=== PATIENT | female | born 1960 | race Caucasian/White ===

== ENCOUNTER 2018-11-12 05:08 | Observation (INO) ==
--- NOTE | 2018-11-07 10:29 | EKG Report ---
Test Performed on : 11/07/2018 09:58:53 AM Test Reason : pat Blood Pressure : / mmHG Vent. Rate : 065 BPM Atrial Rate : 065 BPM P-R Int : 152 ms QRS Dur : 084 ms QT Int : 396 ms P-R-T Axes : 035 016 059 degrees QTc Int : 411 ms Normal sinus rhythm. Normal ECG No previous ECGs available Confirmed by Brennen HUTTON, Lukas Trotter ([id number]) on 11/07/2018 11:40:08 AM
[2018-11-07 10:42] LABS: BASO# 0.04 X1000 (0.0-0.2); BASO% 0.9 % (0.0-0.8); EOS# 0.07 X1000 (0.0-0.7); EOS% 1.5 % (0.0-10.0); HEMATOCRIT 43.6 % (37.0-47.0); HEMOGLOBIN 14.8 g/dL (12.0-16.0); LYMPH# 1.35 X1000 (1.2-3.4); LYMPH% 28.8 % (20.5-51.1); MCH 31.7 PG (27-31); MCHC 33.9 g/dL (33-37); MCV 93.4 FL (81-99); MONO# 0.32 X1000 (0.11-0.59); MONO% 6.8 % (1.7-9.3); MPV 9.7 FL (7.4-10.4); NEUT# 2.91 X1000 (1.4-6.5); PLT 232 X1000 (130-400); RBC 4.67 XMIL (4.2-5.4); RDW 12.1 % (11.5-14.5); WBC 4.69 X1000 (4.8-10.8)
--- NOTE | 2018-11-08 11:20 | HISTORY AND PHYSICAL ---
HISTORY: The patient is a 58-year-old female with longstanding pelvic organ prolapse. We initially started seeing her approximately 1 year ago, and at that time she was found to have stage IV prolapse. The patient has worked for several physicians over many years, and is constantly checking her urine which is showing microscopic hematuria. Her prior evaluation has been negative. However, because of the prolapse, she is wishing to proceed with surgical intervention. We discussed pessary management, and we used a ring pessary for some period of time. However, she is now wishing to proceed with definitive surgical correction. The risks and benefits of sacrocolpopexy, supracervical hysterectomy, bilateral salpingectomy and mid urethral sling were explained at length. She understands and she is wishing to proceed. PAST MEDICAL HISTORY: Negative for diabetes, hypertension, or asthma. PAST SURGICAL HISTORY: Positive for cervical conization and tonsillectomy. She is noted to be a para 2-0-0-2. ALLERGIES: No known drug allergies. CURRENT MEDICATIONS: None. SOCIAL HISTORY: Negative for tobacco, ETOH, or drugs. FAMILY HISTORY: Noncontributory. PHYSICAL EXAMINATION: VITAL SIGNS: BMI is 26. HEENT: Normocephalic, atraumatic. PERRLA. EOMI. No thyromegaly. CV: Regular rate and rhythm without murmur, gallop, or rub. PULMONARY: Clear to auscultation and percussion. ABDOMEN: Soft. : Stage IV prolapse based on total vaginal length with most of this being apical in nature. Point D is at 0. NEUROLOGIC: Afocal. EXTREMITIES: Without clubbing, cyanosis, or edema. ASSESSMENT AND PLAN: Patient with advanced staged prolapse and is wishing to proceed towards surgical correction. The risks and benefits were discussed at length. She understands and wishing to proceed. She is admitted at this time for supracervical hysterectomy, abdominal sacrocolpopexy, bilateral salpingectomy and mid urethral sling with Obtryx. cc: Wali Mcmahon MD
[2018-11-12] MEDS ORDERED: KEFZOL 1 GM/D5W 1 GM/50 ML IVPB ONE (05:36)
[2018-11-12] MEDS ORDERED: REGLAN ONE (05:36)
[2018-11-12] MEDS ORDERED: TRANSDERM-SCOP ONE (05:36)
[2018-11-12] MEDS ORDERED: LR 1,000 ML ONE ×3 (05:36→10:10)
[2018-11-12] MEDS ORDERED: PEPCID ONE (05:36)
[2018-11-12] MEDS ORDERED: FENTANYL ONE ×2 (05:49→09:06)
[2018-11-12] MEDS ORDERED: VERSED ONE (05:49)
[2018-11-12] MEDS ORDERED: DIPRIVAN 1% ONE (05:49)
[2018-11-12] MEDS ORDERED: QUELICIN (DOSE) ONE (05:51)
[2018-11-12] MEDS ORDERED: ROBINUL ONE (05:51)
[2018-11-12] MEDS ORDERED: NORCURON ONE (05:51)
[2018-11-12] MEDS ORDERED: XYLOCAINE-MPF 2% ONE (05:51)
[2018-11-12] MEDS ORDERED: DECADRON ONE (05:51)
[2018-11-12] MEDS ORDERED: STERILE WATER INJ. ONE (05:51)
[2018-11-12] MEDS ORDERED: NEOSTIGMINE ONE (05:51)
[2018-11-12] MEDS ORDERED: ZOFRAN ONE (05:51)
[2018-11-12] MEDS ORDERED: MARCAINE 0.25% PF/EPI 1:200,000 ONE (06:32)
[2018-11-12] MEDS ORDERED: D10W 1,000 ML ONE (06:33)
--- NOTE | 2018-11-12 06:37 | H&P REVIEW ---
H&P Update H&P Review: H&P was reviewed and patient was examined, No change has occurred in the patient's condition
[2018-11-12] MEDS ORDERED: PITRESSIN ONE (08:14)
[2018-11-12] MEDS ORDERED: LASIX ONE (08:47)
[2018-11-12] MEDS ORDERED: TORADOL ONE ×2 (08:47→10:10)
[2018-11-12] MEDS ORDERED: BRIDION ONE (09:02)
[2018-11-12 09:46] LABS: URINE SOURCE CATH
[2018-11-12 09:49] LABS: BILIRUBIN URINE NEGATIVE (NEGATIVE); BLOOD URINE SMALL (NEGATIVE); COLOR STRAW; GLUCOSE URINE NEGATIVE (NEGATIVE); KETONE URINE NEGATIVE (NEGATIVE); LEUKOCYTES URINE NEGATIVE (NEGATIVE); NITRITE URINE NEGATIVE (NEGATIVE); PROTEIN URINE NEGATIVE (NEGATIVE); TURBIDITY URINE CLEAR (CLEAR); UR EPITHELIAL CELLS <10 /HPF (<10); URINE BACTERIA NEGATIVE /HPF; URINE RBC <10 /HPF (<10); URINE WBC <10 /HPF (<10); UROBILINOGEN URINE NORMAL (NORMAL)
--- NOTE | 2018-11-12 10:35 | OPERATIVE NOTE ---
PROCEDURE DATE: PREOPERATIVE DIAGNOSIS: Pelvic organ prolapse. POSTOPERATIVE DIAGNOSES: 1. Pelvic organ prolapse. 2. Right ovarian adhesive disease. PROCEDURE: 1. Da Stephan supracervical hysterectomy. 2. Abdominal sacrocolpopexy. 3. Midurethral sling with Obtryx. SURGEON: Wali Mcmahon MD ANESTHESIA: General. ESTIMATED BLOOD LOSS: 25 mL. HISTORY: The patient is a 58-year-old female whom we have been managing conservatively with pessary for advanced stage prolapse that began after the of her 2nd child. On initial evaluation, she was found to have stage 4 prolapse based on total vaginal length and Point C determination. She does not have any prolapse beyond that level; however, because the apical prolapse was greater than one-half of the vaginal length, she meets stage 4 criteria. Intraoperatively, she was found to have the right ovary densely adhered to the sidewall with the ureter at the most posterior portion of the ovary right in the area of dissection for placement of the graft from the sacrum. We had to avoid this area throughout. OPERATIVE PROCEDURE: Patient was taken to the operating room and placed in supine position. After adequate general anesthesia was obtained, she was placed in low adjustable stirrups and her abdomen and vagina were prepped and draped in the usual fashion. Pace catheter was placed and EEA sizers were placed within the vagina and the rectum. At this time, we went above and supraumbilically injected 0.25% Marcaine with epinephrine. We then made an incision for a 12 mm port. The port was placed and pelvic contents were visualized. Therefore, insufflation with CO2 to an intra-abdominal pressure of 14 was performed. The left-sided ports were placed under direct visualization after infiltration of the same local anesthetic and the right ports were placed similarly as well. The assistance port was in the right upper quadrant. Upon doing this, we then placed the patient in the deep Trendelenburg position and the robot was docked in the usual fashion without difficulty. Using the sizers to elevate the uterus, we initially grasped the uterus with single-tooth tenaculum, which was in Arm 3, the bipolar PK was in Arm 2, and hot scissors were in the right hand. We started at the left fallopian tube, elevating it away from the ovary. We clamped, cauterized, and cut the mesosalpinx and continued in clamp, cauterize, and cut fashion through the entire mesosalpinx, the utero-ovarian pedicle, and the round ligament. We then continued down the cardinal ligament partially to the level of the peritoneal fold. We turned our attention towards the right side; however, the ovary was densely adhered on the right- hand side. We were able to grasp the distal fallopian tube and elevated it away. We clamped, cauterized, and cut the mesosalpinx and continued in a similar fashion through the entire length of the mesosalpinx, the right utero-ovarian pedicle, the right round ligament, and then down the cardinal ligament. All pedicles were noted to be hemostatic. We then deviated the uterus posteriorly and we were able to develop the vesicovaginal space well below the cervical site. We turned our attention posteriorly to confirm the location of the uterosacral ligaments. We then continued down the cardinal ligaments and vessels on the right- and left-hand sides in clamp, cauterize, and cut fashion with the ureter now well out of the operative site. We did this to the level of the uterosacral ligament insertion. We then cut across the cervical stump, extirpating the corpus of the uterus from the cervical stump. The corpus was then placed in the appendiceal bed. We regrasped the cervical stump with a single-tooth tenaculum and then continued to elevate this out of the pelvis, and we continued with our vesicovaginal dissection. We went down to the level of the urethrovesical neck at the Pace bulb. We then turned our attention towards the posterior rectovaginal space and easily dissected this out and our blood loss at this point had been minimal. We then turned our attention towards the sacral promontory. We elevated the peritoneum in this area and then removed approximately 2 cm of presacral fat. We were then able to identify the anterior longitudinal ligament and our vessels were well out of the operative site. We then began creation of our tunnel; however, we quickly realized the right ovary was densely adhered and the ureter was pulled up just underneath the ovary at the inferior side. This made our dissection somewhat tenuous in this area to ensure that we did not incidentally kink this ureter on the right side when we closed the peritoneum. We tried to go lower than typical along the right-hand side with our dissection and continued down to our posterior dissection of the rectovaginal space. The mesh was introduced into the pelvis after having been trimmed. Based on the extent of her prolapse defects, the anterior mesh was placed in the vesicovaginal space and we secured it with 0 Armour-Jim suture. All sutures were thrown with an initial surgeon's throw and then 4 half-throws after this. We placed approximately 10 to 12 sutures anteriorly, starting distally and then becoming more proximal. We then placed 4 of 6 sutures through the cervical stump and then turned our attention towards the posterior arm. We used the third arm to elevate the bladder initially to develop the vesicovaginal space and to allow room for suturing. We then continued to use the third arm for deviation of the sigmoid away from our operative site. We placed approximately 8 sutures in the posterior compartment and our mesh was actually short on the posterior compartment approximately 2 to 3 cm. We had developed the space all the way down to the distal levators; however, our mesh did not reach this far, and decision was made not to attach a 2nd piece of mesh in this area. After securing the posterior arm, we then brought the third arm up to the promontory and placed 2 sutures through the mesh and through the anterior longitudinal ligament. We had no evidence of any bleeding at this site. We were able to confirm appropriate placement of the sutures through the ligament with gentle tension. Excessive mesh was trimmed at the third arm. We then re-peritonealized with the V-Loc suture. We were very careful around the ovary to ensure that we were not kinking this area due to the adhesive disease. Should any further surgery need to be done on the right ovary, this could be a somewhat difficult procedure to perform. After completion of this, copious amounts of irrigation were performed. Our blood loss had been minimal. We brought the uterus down into the pelvis and undocked the robot. With the robot undocked, we then removed the assistance port and placed the morcellator and morcellated the uterus with minimal tissue, spreading through throwing of material. We then performed copious amounts of irrigation again. We confirmed that all of the pieces had been removed. We then used a KavonThomasen to close the fascia and peritoneum of the assistance port as well as the supraumbilical robotic camera port. This was with a 0 Vicryl ligature. Abdomen was deflated of CO2 as the remaining ports were removed. Nursing services closed all 5 skin incisions with 4.0 Vicryl ligature in a subcuticular fashion as well as surgical glue. Vaginally, the Pace catheter was removed. We had excellent support in all compartments and decision was made not to proceed with a distal posterior defect repair. We started placement the sling by grasping the urethra proximally and distally with Allis clamps. We injected approximately 10 mL of the same local anesthetic in a periurethral fashion for dissection and pain management. A sagittal incision was made. Metzenbaum scissors were utilized to dissect up to the ischial pubic ramus bilaterally. Based on the bony landmarks of the ischial pubic ramus and the insertion of the adductor longus, a stab incision was initially made on the left-hand side. The halo device was introduced through the incision, through the obturator canal, and to the well drill operator cable tool's finger, which directed the needle out. The mesh was attached to it and then retracted back through the skin. This was performed on the contralateral side in a similar fashion. Cystoscope was placed and the bladder was filled to 200 mL of D10. There was no evidence of any abnormalities within the bladder except for some vascular changes consistent with interstitial cystitis. Both ureters were effluxing urine without any difficulty. There was no evidence of any mesh. Cystoscope was removed and a Katie clamp was placed in the mid urethral position. The tape was brought out the Katie clamp, blue tag was excised, and the sheaths were easily removed. There was no tension on the mesh whatsoever. The Katie clamp was removed and the midurethral incision was closed with a running 2.0 Vicryl ligature. Sponge count, instrument count, and needle counts were correct x3. Packs and drains were Pace. Patient was taken out of low adjustable stirrups. She was awakened and taken to the recovery room with vital signs stable. Rectal examination was found to be within normal limits. cc: Wali Mcmahon MD
[2018-11-12] MEDS ORDERED: ZOFRAN ODT PO PRN (11:06)
[2018-11-12] MEDS ORDERED: NORCO-5 PO PRN (11:06)
[2018-11-12] MEDS: PERIDEX MT SCH ×2 (11:25→21:29)
[2018-11-12] MEDS: COLACE PO SCH ×2 (11:27→21:29)
[2018-11-12] MEDS: LR 1,000 ML IV SCH ×2 (11:28→18:50)
[2018-11-12] MEDS: TORADOL IV SCH ×2 (16:47→21:29)
--- NOTE | 2018-11-12 17:41 | PROGRESS NOTE ---
DATE: 11/12/2018 TIME: 5 p.m. SUBJECTIVE: Patient is alert and oriented x3. OBJECTIVE: Afebrile. Vital signs stable. Urine output is clear. Dressings are intact. ASSESSMENT AND PLAN: Routine postoperative care. If we have a good evening, we will plan on removing the Pace in the morning and letting her go through a voiding trial, and if this is successfully completed, she will be discharged home after completion of the voiding trial. We discussed the discharge plan with the patient and her , and they understand. cc: Wali Mcmahon MD
[2018-11-13] MEDS: TORADOL IV SCH ×2 (05:32→08:52)
[2018-11-13 08:02] VITALS: BP 98/48
[2018-11-13] MEDS: COLACE PO SCH (08:52)
[2018-11-13] MEDS: PERIDEX MT SCH (08:52)
--- NOTE | 2018-11-14 00:18 | DISCHARGE SUMMARY ---
ADMISSION DATE: 11/12/2018 DISCHARGE DATE: 11/13/2018 PRINCIPAL DIAGNOSIS: Pelvic organ prolapse. OTHER DIAGNOSES: Uterine fibroids. PROCEDURE: Da Stephan supracervical hysterectomy, abdominal sacrocolpopexy, mid urethral sling with Obtryx. HISTORY: The patient is a 58-year-old female with worsening problems of pelvic organ prolapse who was admitted for surgical intervention. HOSPITAL COURSE: The patient underwent the above-stated procedure. Blood loss at time was approximately 25 mL. Postoperative course has been uncomplicated. She is currently undergoing voiding trial. She will be discharged home instructions for followup in 2 weeks. DISCHARGE MEDICATIONS: [place], Colace, and Toradol. She was instructed on regular diet and decreased activity. cc: Wali Mcmahon MD
== END 2018-11-13 11:16 | disposition home or self-care (01) ==
LOC: OPS 05:08 → PAT 05:08 → 4N 05:08
PROVIDERS: ADMIT Obstetrics & Gynecology; ATTEND Obstetrics & Gynecology
CPT/HCPCS: 81001; 85025; 88307; 93005; 93010; 94761; 94799; A9270; C1771; C1781; J0330; J0690; J1100; J1885; J1940; J2250; J2405; J3010; J7120; S2900